=== PATIENT | male | born 1990 | race Caucasian/White ===

== ENCOUNTER 2019-09-27 13:18 | Emergency (ER) | payer BC, SELFPAY ==
[2019-09-27 13:30] VITALS: BP 180/100; PULSE 92; RESP 20; TEMP 36.8; O2SAT 99
[2019-09-27 13:35] VITALS: BP 200/110
--- NOTE | 2019-09-27 14:01 | ED.URI ---
HPI - URI/Sore Throat General Chief Complaint: Dizziness Stated Complaint: shortness of breath/lightheaded Time Seen by Provider: 09/27/19 13:43 Source: patient and RN notes reviewed Mode of arrival: ambulatory Limitations: no limitations History of Present Illness HPI Narrative: Patient presents today complaining of Shortness of breath, rhinorrhea, dizziness, lightheadedness, dry cough. Symptoms began on 09/23/2019, and are only present when he wears a mask at work.He does not have any symptoms when he is not wearing a mask. History of asthma and has been using his albuterol inhaler every 1-2 hours, which had been helping. His employer sent him in for evaluation. History of hypertension. He did not take his 100 mg of metoprolol this morning.Denies any symptoms of headache, vision changes, chest pain, dizziness, lightheadedness at this time. MD elicited complaint: other (Shortness of breath) Related Data Home Medications Medication Instructions Recorded Confirmed metoprolol tartrate 100 mg PO Q12H 09/27/19 09/27/19 Allergies Allergy/AdvReac Type Severity Reaction Status Date / Time No Known Allergies Allergy Verified 09/27/19 13:57 Review of Systems Review of Systems: Narrative: CONSTITUTIONAL: Denies body aches, fever, chills, or sweats. EYES: Denies visual changes, redness, or discharge. ENT: Denies congestion, sore throat, or otalgia.+Rhinorrhea CARDIOVASCULAR: Denies chest pain, palpitations, or edema. RESPIRATORY: +Dry cough, shortness of breath GASTROINTESTINAL: Denies abdominal pain, nausea, vomiting, or diarrhea. GENITOURINARY: Denies dysuria or hematuria. SKIN: Denies rash, itching, or wounds. MUSCULOSKELETAL: Denies back pain, joint pain, or myalgia. NEUROLOGIC: Denies headache, numbness, tingling, or weakness.+Dizziness, lightheadedness PSYCH: Denies depression or anxiety. [facility] Past Medical History Medical History (Updated 09/27/19 @ 14:30 by Chary Monzon, RELATIONSHIP COUNSELOR, ) Asthma Hypertension Comments At time of signature, I have reviewed and agree with nursing past medical, surgical, social and family history unless otherwise noted. Please see nursing chart for further information. There is no relevant family history pertinent to the presenting complaint Exam Narrative: Exam Narrative: GENERAL: Well-appearing, well-nourished, and in no acute distress. HEAD: Normocephalic, atraumatic. EYES: EOMI. No redness or drainage. Conjunctivae normal. ENT: Mucous membranes pink and moist. Nares clear. No rhinorrhea. Throat normal. Uvula midline. NECK: Normal AROM. Supple. No lymphadenopathy. CHEST: No respiratory distress. Clear to auscultation. HEART: Regular rate and rhythm. No murmur appreciated. Normal peripheral pulses. EXTREMITIES: Normal range of motion. No edema. SKIN: Warm, dry, no rash. Capillary refill normal. Normal skin turgor. NEURO: No focal deficits. Alert and oriented x3. Gait steady. PSYCH: Normal affect. No signs of depression or anxiety. Course Vital Signs Vital signs: Vital Signs Temperature 98.2 F 09/27/19 13:30 Pulse Rate 92 09/27/19 13:30 Respiratory Rate 20 09/27/19 13:30 Blood Pressure 180/100 H 09/27/19 13:30 Pulse Oximetry 99 09/27/19 13:30 Temperature 98.2 F 09/27/19 13:30 Pulse Rate 92 09/27/19 13:30 Respiratory Rate 20 09/27/19 13:30 Blood Pressure 200/110 H 09/27/19 13:35 Pulse Oximetry 99 09/27/19 13:30 Reviewed. Patient will take his Metoprolol when he arrives home after visit. MDM - URI/Sore Throat Differential Diagnosis Differential diagnosis: Likely other (Asthma exacerbation, hypercapnia, hypertension, hypertensive urgency) Critical Care Time Critical Care Time Critical Care Time: No Discharge Plan Discharge Clinical Impression: Shortness of breath Hypertension Qualifiers: Hypertension type: unspecified Qualified Code(s): I10 - Essential (primary) hypertension Patient Disposition: Home, Self-Care
== END 2019-09-27 14:05 | disposition home or self-care (01) ==
PROVIDERS: Emergency Provider Nurse Practitioner; PCP Family Medicine
DX: R06.02 Shortness of breath (principal); I10 Essential (primary) hypertension; J45.909 Unspecified asthma, uncomplicated
CPT/HCPCS: 99213; G0463

== ENCOUNTER 2023-02-19 16:20 | Outpatient (CLI) | payer BC, SELFPAY ==
--- NOTE | ~2023-02-19 | XR_ITS ---
EXAMINATION: XR chest 2V DATE: 02/19/2023 16:39 INDICATION: Abnormal chest radiographs. TECHNIQUE: Frontal and lateral views of the chest were obtained. COMPARISON: None. FINDINGS: There is no pneumonia, pleural effusion, or pneumothorax. The heart size is normal. IMPRESSION: 1. No acute cardiopulmonary disease. Reviewed, dictated and finalized at location E.
== END 2023-02-19 16:21 | disposition home or self-care (01) ==
LOC: ANHIMG 16:23
PROVIDERS: PCP Family Medicine; Visit Provider Internal Medicine
DX: R93.89 Abnormal findings on diagnostic imaging of other specified body structures (principal)
CPT/HCPCS: 71046

== ENCOUNTER 2023-08-19 17:07 | Emergency (ER) | payer OTHER, SELFPAY ==
--- NOTE | ~2023-08-19 | XR_ITS ---
EXAM: XR foot LT min 3V DATE: 08/19/2023 17:35 HISTORY: NKI,GEN PLANTAR MTP JOINT PAIN . COMPARISON: None available. FINDINGS: Normal mineralization. No fracture or dislocation. No lytic or blastic lesion. Minimal Ach illes and plantar enthesopathy. Os navicularis. Mild degenerative change at the first MTP joint. No e rosion or periosteal change. Soft tissues within normal limits. IMPRESSION: No acute osseous finding in the left foot. Reviewed, dictated and finalized at location K.
[2023-08-19 17:14] VITALS: BP 136/86; PULSE 90; RESP 16; TEMP 36.3; O2SAT 100
--- NOTE | 2023-08-19 17:14 | ED.GENADULT ---
HPI - General Adult General Chief complaint: Extremity Injury, Lower Stated complaint: Left Foot Pain Source: patient, RN notes reviewed and old records reviewed Mode of arrival: ambulatory Limitations: no limitations History of Present Illness HPI narrative: 33-year-old male patient presents to [facility] with complaints of left foot pain. Patient states pain started in left ankle 8 days ago and have bruising around ankle that is improved but now pain has moved into the foot. Patient states he feels the ankle has resolved but now having foot pain patient denies noted injury. Related Data Home Medications Medication Instructions Recorded Confirmed aspirin 81 mg tablet,delayed 81 mg PO DAILY 08/19/23 08/19/23 release atorvastatin 40 mg tablet 40 mg PO DAILY 08/19/23 08/19/23 hydrochlorothiazide 12.5 mg tablet 12.5 mg PO DAILY 08/19/23 08/19/23 metformin 500 mg tablet,extended 500 mg PO DAILY 08/19/23 08/19/23 release 24 hr metoprolol tartrate 100 mg tablet 100 mg PO BID 08/19/23 08/19/23 telmisartan 80 mg tablet 80 mg PO DAILY 08/19/23 08/19/23 Allergies Allergy/AdvReac Type Severity Reaction Status Date / Time No Known Allergies Allergy Verified 08/19/23 17:15 Review of Systems Constitutional: Constitutional: Reports no additional constitutional complaints, Denies body ache(s), Denies chills, Denies fatigue, Denies fever(s) and Denies headache(s) Eyes: Eyes: Reports no additional eye complaints and Denies blurry vision ENT: Reports system reviewed and no additional complaints, except as documented, Denies vertigo, Denies dizziness, Denies ear discharge, Denies otalgia, Denies facial pain, Denies headache(s), Denies nasal congestion, Denies nasal discharge, Denies sinus pain, Denies sinus pressure and Denies sore throat Cardiovascular: Cardiovascular: Reports no additional cardiovascular complaints, Denies chest pain, Denies chest pain at rest, Denies rapid heart rate and Denies dyspnea Respiratory: Respiratory: Reports no additional respiratory complaints, Denies chest congestion, Denies cough, Denies pain on inspiration, Denies pain with cough and Denies dyspnea Gastrointestinal: Gastrointestinal: Denies abdominal pain, Denies diarrhea, Denies nausea and Denies vomiting Musculoskeletal: Comments: Left foot pain Integumentary/Breasts: Skin/Breast: Denies rash Neurologic: Reports system reviewed and no additional complaints, except as documented, Denies vertigo, Denies dizziness and Denies headache(s) Endocrine: Endocrine: Denies fatigue PMFSH Past Medical History Medical History (Updated 08/19/23 @ 17:41 by Sahra Mendosa APRN) Asthma Hypertension Comments At the time of my signature, I reviewed and agree with the nursing past medical, surgical, social, and family history. There is no relevant family history pertinent to the patient complaint. Exam Const: General: cooperative, healthy appearing, no acute distress and well nourished Nutritional Appearance: well nourished Orientation/consciousness: patient oriented x3 Limitations: no limitations HENMT: Head: normal to inspection and normocephalic Ears: external ears normal Face/Nose/Sinus: normal facial exam Face and sinus: normal facial exam Mouth: Yes Normal oral and palatal mucosa present, Yes oropharynx normal and Yes moist mucous membranes Eyes: General: appearance normal, both eyes and all related structures Sclera: sclerae normal Pupils: Equal, round and reactive pupils present Resp: Effort & Inspection: normal respiratory effort, able to speak in complete sentences, no audible wheezes, no cough, no respiratory distress and no retractions Skin: General skin exam: normal color and no rashes or lesions noted Neuro: General: patient oriented x3 Cranial nerves: Yes Equal, round and reactive pupils present Extrem: Left lower extremity: ankle Details: normal to inspection, no edema and normal ROM; no tenderness, no swelling,
== END 2023-08-19 18:00 | disposition home or self-care (01) ==
PROVIDERS: Emergency Provider Registered Nurse; PCP Internal Medicine
DX: M77.8 Other enthesopathies, not elsewhere classified (principal); J45.909 Unspecified asthma, uncomplicated; I10 Essential (primary) hypertension; Z79.82 Long term (current) use of aspirin
CPT/HCPCS: 73630; 99213; G0463

== ENCOUNTER 2023-08-20 11:46 | Emergency (ER) | payer OTHER, SELFPAY ==
[2023-08-20 11:47] VITALS: BP 146/83; PULSE 80; RESP 20; TEMP 36.7; O2SAT 97
--- NOTE | 2023-08-20 14:27 | ED.LOWEXIN ---
HPI - Extremity Injury (Lower) General Chief Complaint: Extremity Injury, Lower Stated Complaint: left foot injury History of Present Illness HPI Narrative: 33 y/o M presents to the ED for left foot pain x9 days. Pt states he was in [place] last week and began developing foot pain and swelling in his foot. States he has had this in the past but usually it only last 3 days and then self resolves. States he has never had pain in his foot last this long. He denies injury or trauma. He is reporting pain throughout the dorsum of his foot and on the plantar aspect of his metatarsals. He was seen at urgent care yesterday and had x-rays of the foot done that were unremarkable. States he believes he has been told in the past that he should not be taking NSAIDs. He has been ambulating with a cane. Related Data Home Medications Medication Instructions Recorded Confirmed aspirin 81 mg tablet,delayed 81 mg PO DAILY 08/19/23 08/19/23 release atorvastatin 40 mg tablet 40 mg PO DAILY 08/19/23 08/19/23 hydrochlorothiazide 12.5 mg tablet 12.5 mg PO DAILY 08/19/23 08/19/23 metformin 500 mg tablet,extended 500 mg PO DAILY 08/19/23 08/19/23 release 24 hr metoprolol tartrate 100 mg tablet 100 mg PO BID 08/19/23 08/19/23 telmisartan 80 mg tablet 80 mg PO DAILY 08/19/23 08/19/23 Allergies Allergy/AdvReac Type Severity Reaction Status Date / Time No Known Allergies Allergy Verified 08/19/23 17:15 Review of Systems Review of Systems: CONSTITUTIONAL: Denies fever, chills, or sweats. EYES: Denies visual changes, redness, or discharge. ENT: Denies rhinorrhea, congestion, sore throat, or otalgia. CARDIOVASCULAR: Denies chest pain, palpitations, or edema. RESPIRATORY: Denies cough or dyspnea. GASTROINTESTINAL: Denies abdominal pain, nausea, vomiting, or diarrhea. GENITOURINARY: Denies dysuria or hematuria. SKIN: Denies rash or itching. MUSCULOSKELETAL: See HPI NEUROLOGIC: Denies headache, numbness, or weakness. PSYCHIATRIC: Denies anxiety or depression. [facility] Past Medical History Medical History Asthma Hypertension Exam Narrative: GENERAL: Well-appearing, well-nourished, and in no acute distress. HEAD: Normocephalic, atraumatic. NECK: Supple. CHEST: Clear to auscultation. No respiratory distress. HEART: Regular rate and rhythm. No murmur heard. Normal peripheral pulses. EXTREMITIES: LLE: tenderness to the plantar aspect of the metatarsals and along the proximal metatarsals over the dorsal aspect. No tenderness to medial or lateral malleolus, remainder of tib-fib, calcaneus. Negative high squeeze Ortega's test. Full range of motion of toes and ankle. DP pulse 2 +. Sensation intact. Cap refill less than 2. Compartment soft, no edema. SKIN: Warm, dry, no rash. NEURO: No focal deficits. Alert and oriented x3 Course Vital Signs Vital signs: Vital Signs Temperature 98.1 F 08/20/23 11:47 Pulse Rate 80 08/20/23 11:47 Respiratory Rate 20 08/20/23 11:47 Blood Pressure 146/83 H 08/20/23 11:47 Pulse Oximetry 97 08/20/23 11:47 Oxygen Delivery Room Air 08/20/23 11:47 Temperature 98.1 F 08/20/23 11:47 Pulse Rate 80 08/20/23 11:47 Respiratory Rate 20 08/20/23 11:47 Blood Pressure 146/83 H 08/20/23 11:47 Pulse Oximetry 97 08/20/23 11:47 Oxygen Delivery Room Air 08/20/23 11:47 MDM - Extremity Injury (Lower) MDM Narrative Medical decision making narrative: 33-year-old male presents to emergency department for left foot pain x9 days. No injury or trauma. See HPI for further history. Vitals stable. Exam significant for the above. He is neurovascularly intact. X-rays reviewed from yesterday which are unremarkable. Do not feel need to repeat x-rays given changes. Suspect a tendinitis/metatarsalgia. patient provided an Enrique wrap, postop shoe and crutches for ambulating as well as follow-up with a clinical laboratory scientist. gi
[2023-08-20 14:36] VITALS: BP 133/87; PULSE 88; RESP 17; O2SAT 97
== END 2023-08-20 14:45 | disposition home or self-care (01) ==
PROVIDERS: Emergency Provider Physician Assistant; PCP Internal Medicine
DX: M77.42 Metatarsalgia, left foot (principal); S96.912A Strain of unspecified muscle and tendon at ankle and foot level, left foot, initial encounter; J45.909 Unspecified asthma, uncomplicated; I10 Essential (primary) hypertension; Z79.84 Long term (current) use of oral hypoglycemic drugs; Z79.82 Long term (current) use of aspirin; X58.XXXA Exposure to other specified factors, initial encounter
CPT/HCPCS: 99283